=== PATIENT | female | born 1970 | race Hispanic/Latino ===

== ENCOUNTER 2023-06-28 13:47 | Emergency (ER) | payer OTHER, SELFPAY | END 2023-06-28 14:13 | disposition left against medical advice (07) | LOC: CSHERS 13:47 | DX: Z53.21 Procedure and treatment not carried out due to patient leaving prior to being seen by health care provider (principal); I10 Essential (primary) hypertension | CPT/HCPCS: 99282 ==

== ENCOUNTER 2023-06-28 14:36 | Emergency (ER) | payer OTHER, SELFPAY ==
[2023-06-28 17:02] LABS: HIV (1/2) Antibody/Antigen Non-Reactive (NonReactive)
== END 2023-06-28 15:28 | disposition home or self-care (01) ==
LOC: CSHERS 14:36
DX: Z20.6 Contact with and (suspected) exposure to human immunodeficiency virus [HIV] (principal); I10 Essential (primary) hypertension
CPT/HCPCS: 87389; 99283